=== PATIENT | female | born 1975 ===

== ENCOUNTER 2016-10-15 23:56 | Emergency (ER) | payer OTHER ==
[2016-10-15 23:58] VITALS: BMI 26.4
[2016-10-16 00:04] VITALS: RESP 18; TEMP 98.4; O2SAT 99
[2016-10-16] MEDS ORDERED: Sodium Chloride 0.9% 1,000 ML IV SCH (00:30)
--- NOTE | 2016-10-16 00:33 | ED PDOC ---
Arrival/HPI - General Chief Complaint: Trauma Time Seen by Provider: 10/16/16 00:20 Historian: Patient, EMS - History of Present Illness Narrative History of Present Illness (Text): 10/16/16 00:15 Jocelyne Molina is a 41 year old female, whose past medical history includes seizure on Tegretol, degenerative joint disease, and herniated disks, presents to the emergency department via EMS s/p unwitnessed fall. According to patient' s , patient experienced a mechanical fall down the stairs and transiently loss consciousness. Upon arrival to the emergency department, patient was alert and orientedX3. However she experienced a seizure while waiting in the emergency room prior to evaluation. History and ROS limited due to patient's symptoms. Time/Duration: Prior to Arrival Symptom Onset: Sudden Context: Home Past Medical History - Provider Review Nursing Documentation Reviewed: Yes - Infectious Disease Hx of Infectious Diseases: None - Tetanus Immunization Tetanus Immunization: Unknown - Cardiac Hx Cardiac Disorders: No - Pulmonary Hx Respiratory Disorders: No - Neurological Hx Seizures: Yes - HEENT Hx HEENT Disorder: No - Renal Hx Renal Disorder: No - Endocrine/Metabolic Hx Endocrine Disorders: No - Hematological/Oncological Hx Blood Disorders: No - Integumentary Hx Dermatological Disorder: No - Musculoskeletal/Rheumatological Hx Back Pain: Yes Hx Degenerative Joint Disease: Yes Hx Herniated Disk: Yes Hx Osteoarthritis: Yes Hx Spinal Stenosis: Yes Other/Comment: Scoliosis, - Gastrointestinal Hx Gastrointestinal Disorders: No - Genitourinary/Gynecological Hx Genitourinary Disorders: No - Psychiatric Hx Psychophysiologic Disorder: No Hx Depression: No Hx Emotional Abuse: No Hx Physical Abuse: No Hx Substance Use: No - Surgical History Hx Orthopedic Surgery: Yes (4 back surgery) Hx Tubal Ligation: Yes Other/Comment: Left foot surgery - Anesthesia Hx Anesthesia: Yes Hx Anesthesia Reactions: No Hx Malignant Hyperthermia: No - Suicidal Assessment Feels Threatened In Home Enviroment: No Family/Social History - Physician Review Nursing Documentation Reviewed: Yes Family/Social History: No Known Family HX Smoking Status: Never Smoked Hx Alcohol Use: No Hx Substance Use: No Hx Substance Use Treatment: No Allergies/Home Meds Allergies/Adverse Reactions: Allergies fish oil Allergy (Verified 04/16/15 23:05) ANAPHYLAXIS iodine Allergy (Verified 04/16/15 23:05) ANAPHYLAXIS levetiracetam [From Keppra] Allergy (Verified 04/16/15 23:05) ANAPHYLAXIS naproxen Allergy (Verified 04/16/15 23:05) ANAPHYLAXIS Penicillins Allergy (Verified 04/16/15 23:05) ANAPHYLAXIS phenytoin sodium [From Dilantin] Allergy (Verified 04/16/15 23:05) ANAPHYLAXIS phenytoin sodium extended [From Dilantin] Allergy (Verified 04/16/15 23:05) ANAPHYLAXIS shellfish derived Allergy (Verified 04/16/15 23:05) ANAPHYLAXIS IV Contrast Dye Allergy (Uncoded 04/16/15 23:05) ANAPHYLAXIS Home Medications: Home Meds Medication Instructions Recorded Confirmed Carbamazepine [Tegretol Xr] 200 mg PO Q6H 06/06/14 10/16/16 Cyclobenzaprine HCl [Flexeril] 10 mg PO Q8H PRN 06/06/14 10/16/16 Gabapentin [Gabapentin] 100 mg PO TID 06/06/14 10/16/16 oxyCODONE/Acetaminophen [Percocet 1 tab PO Q4H PRN 06/06/14 10/16/16 5/325 mg Tab] Review of Systems - Review of Systems Systems not reviewed;Unavailable: Acuity of Condition Physical Exam Vital Signs Temp Pulse Resp BP Pulse Ox 10/16/16 00:03 98.4 F 89 18 120/50 L 99 Temperature: Afebrile Blood Pressure: Normal Pulse: Regular Respiratory Rate: Normal Appearance: Positive for: Non-Toxic Mental Status: No: Agitated, Lethargic - Systems Exam Head: Present: Atraumatic, Normocephalic Pupils: Present: PERRL Conjunctiva: Present: Normal Mouth: Present: Moist Mucous Membranes Respiratory/Chest: Present: Clear to Auscultation, Good Air Exchange. No: Respiratory Distress, Accessory Muscle Use Cardiovascular: Present: Regular Rate and Rhythm, Normal S1, S2. No: Murmurs Abdomen: Present: Normal Bowel Sounds. No: Tenderness, Distention, Peritoneal Signs Upper Extremity: Present: Normal Inspection. No: Cyanosis, Edema Lower Extremity: Present: Normal Inspection. No: Edema Skin: Present: Warm, Dry, Normal Color. No: Rashes Medical Decision Making ED Course and Treatment: 10/16/16 00:15 Impression: A 41 year old female who presents to the emergency department for evaluation following mechanical fall. Patient experienced a witnesses seizure while waiting in the emergency room. Plan: -- CT spine -- CT Head -- Carbamazepine -- labs -- Ativan -- IV fluids -- HCG -- Urinalysis -- Reassess and disposition Progress Notes: 10/16/16 00:15 Pt actively seizing in the emergency room. ordered Ativan. 10/16/16 01:16 CT Head reviewed: IMPRESSION: No acute intracranial abnormality 10/16/16 01:47 CT Spine reviewed: IMPRESSION: 1. No acute cervical spine fracture. 2. The cervical lordosis is reversed. There is mild anterolisthesis of C7 on T1. 3. Spondylosis is visualized at multiple cervical levels. 4. Bilateral neural foraminal narrowing is identified at C5-6, with left neural foraminal narrowing at C6-7. 5. Within the C6 vertebral body, there is a heterogeneously hypodense lesion, suggestive of a hemangioma. This can be further evaluated with MRI. 10/16/16 04:02 Patient was offered admission to the hospital for further evaluation, but patient wants to sign out against medical advice. I personally advised the patient to stay in the hospital and informed her of the risks including recurrent seizure and even . States she understands the risks of leaving against medical advice and is adamant in her decision. Leaving Against Medical Advice (AMA): This patient is choosing to leave against medical advice. I have personally explained to the patient that choosing to do so may result in permanent bodily harm or . I have discussed at great length that without further evaluation and monitoring there may be unforeseen circumstances and/or deterioration causing permanent bodily harm or as a result of their choice. The patient is alert, oriented, and shows the mental capacity to make clear decisions regarding the patients health care at this time. The patient continues to wish to leave against medical advice. The patient has been advised that they should return to the ED immediately if they change their mind at any time, or if their condition begins to change or worsen in any way. - Lab Interpretations Lab Results: 10/16/16 00:33 10/16/16 00:33 Lab Results 10/16/16 00:33: WBC 10.4 D, RBC 4.34, Hgb 12.7, Hct 37.2, MCV 85.7, MCH 29.3, MCHC 34.1, RDW 13.4, Plt Count 309, MPV 9.0 10/16/16 00:33: Sodium 138, Potassium 3.3 L, Chloride 104, Carbon Dioxide 21, Anion Gap 16, BUN 13, Creatinine 0.6, Est GFR ( Amer) > 60, Est GFR (Non- Af Amer) > 60, Random Glucose 129 H, Calcium 9.2, Total Bilirubin 0.3, AST 28, ALT 18, Alkaline Phosphatase 45, Total Protein 7.0, Albumin 4.3, Globulin 2.6, Albumin/Globulin Ratio 1.7 I have reviewed the lab results: Yes - RAD Interpretation Narrative RAD Interpretations (Text): EXAM: CT Head Without Intravenous Contrast Dictated and Authenticated by: Zen Mckinnon MD FINDINGS: Brain: The white-geller differentiation is preserved demonstrating no acute territorial type infarct. No acute intracranial hemorrhage is seen. No edema. Midline shift: There is no midline shift. Ventricles: No ventriculomegaly. Bones/joints: The calvarium demonstrates no evidence for a depressed fracture. There is a stable nonspecific sclerotic lesion within the left posterior superior parietal skull. Soft tissues: No acute abnormality. Sinuses: Mild mucosal thickening is visualized of a left anterior ethmoid air cell. Mastoid air cells: No mastoid effusion. IMPRESSION: 1. No acute intracranial abnormality. 2. Incidental/non-acute findings are described above. 10/16/16 01:43 EXAM: CT Cervical Spine Without Intravenous Contrast Dictated and Authenticated by: Zen Mckinnon MD FINDINGS: Vertebrae: No acute cervical spine fracture. The cervical lordosis is reversed. There is mild anterolisthesis of C7 on T1. The facet alignment is preserved bilaterally. The occipital condyles and C1-C2 articulations appear intact. Hypertrophic degenerative changes are identified at the junction of the anterior C1 arch and dens process, with an adjacent ossicle. Within the C6 vertebral body, there is a heterogeneously hypodense lesion, suggestive of a hemangioma. Discs/spinal canal/neural foramina: Spondylosis is visualized at multiple cervical levels. Bilateral neural foraminal narrowing is identified at C5-6, with left neural foraminal narrowing at C6-7. There is a decrease in disc height at C5-6 and C6-7. Soft tissues: The prevertebral soft tissues appear within normal limits. Lung apices: No pneumothorax. There is biapical parenchymal scarring. IMPRESSION: 1. No acute cervical spine fracture. 2. The cervical lordosis is reversed. There is mild anterolisthesis of C7 on T1. 3. Spondylosis is visualized at multiple cervical levels. 4. Bilateral neural foraminal narrowing is identified at C5-6, with left neural foraminal narrowing at C6-7. 5. Within the C6 vertebral body, there is a heterogeneously hypodense lesion, suggestive of a hemangioma. This can be further evaluated with MRI. Radiology Orders: 10/16/16 00:21 HEAD W/O CONTRAST [CT] Stat 10/16/16 00:31 CERVICAL SPINE W/O CONTRAST [CT] Stat Record Press Supervisor: Radiologist - Medication Orders Current Medication Orders: Sodium Chloride (Sodium Chloride 0.9%) 1,000 mls @ 100 mls/hr IV .Q10H JOSE GUADALUPE Last Admin: 10/16/16 00:32 Dose: 100 mls/hr Discontinued Medications Lorazepam (Ativan) Confirm Administered Dose 2 mg .ROUTE .STK-MED ONE Stop: 10/16/16 00:19 Last Admin: 10/16/16 00:32 Dose: Lorazepam (Ativan) 2 mg IVP ONCE ONE Stop: 10/16/16 00:21 Last Admin: 10/16/16 00:32 Dose: 2 mg Potassium Chloride (K-Dur 20 Meq Er Tab) 20 meq PO STAT STA Stop: 10/16/16 03:08 Last Admin: 10/16/16 03:37 Dose: 20 meq - Scribe Statement Marjorie Sal Provider Attestation: All medical record entries made by the [place]ton were at my direction and personally dictated by me. I have reviewed the chart and agree that the record accurately reflects my personal performance of the history, physical exam, medical decision making, and the department course for this patient. I have also personally directed, reviewed, and agree with the discharge instructions and disposition. Disposition/Present on Arrival - Present on Arrival Any Indicators Present on Arrival: No History of DVT/PE: No History of Uncontrolled Diabetes: No Urinary Catheter: No History of Decub. Ulcer: No History Surgical Site Infection Following: None - Disposition Have Diagnosis and Disposition been Completed?: Yes Diagnosis: Seizure disorder, Fall Disposition: AGAINST MEDICAL ADVICE Disposition Time: 04:09 Condition: STABLE Referrals: Sydni Gray DO [Primary Care Provider] - Follow up with primary Forms: [email or web address] ([place])
[2016-10-16 00:56] LABS: HEMOGLOBIN 12.7 g/dL (12.0-16.0); MEAN CELL VOLUME 85.7 fl (80.0-105.0); MEAN CORPUSCULAR HEMOGLOBIN 29.3 pg (25.0-35.0); MEAN CORPUSCULAR HGB CONC 34.1 g/dl (31.0-37.0); RBC 4.34 10^6/uL (3.5-6.1); RED CELL DISTRIBUTION WIDTH 13.4 % (11.5-14.5); WHITE BLOOD COUNT 10.4 10^3/ul (4.5-11.0)
[2016-10-16 01:02] LABS: ALB/GLOB RATIO 1.7 (1.1-1.8); ALBUMIN 4.3 g/dL (3.0-4.8); ALT/SGPT 18 U/L (7-56); AST/SGOT 28 U/L (15-39); BLOOD UREA NITROGEN 13 mg/dL (7-21); CALCIUM 9.2 mg/dL (8.4-10.5); GFR AFRICAN-AMERICAN > 60; GFR NON-AFRICAN AMERICAN > 60
[2016-10-16] MEDS ORDERED: Potassium Chloride 20 mEq ER Tab PO STA (03:07)
[2016-10-16 04:18] LABS: URINE BILIRUBIN NEGATIVE (NEGATIVE); URINE BLOOD TRACE-LYSED (NEGATIVE); URINE GLUCOSE (UA) NEGATIVE (NEGATIVE); URINE LEUKOCYTE ESTERASE TRACE Leu/uL (NEGATIVE); URINE NITRATE NEGATIVE (NEGATIVE); URINE PROTEIN NEGATIVE mg/dL (<30 mg/dL); URINE UROBILINOGEN 0.2 E.U./dL (<1 E.U./dL)
[2016-10-16 04:24] LABS: URINE APPEARANCE CLEAR (CLEAR); URINE COLOR YELLOW (YELLOW)
[2016-10-16 04:26] LABS: HCG,QUALITATIVE URINE NEGATIVE (NEGATIVE)
[2016-10-16 04:35] VITALS: BP 118/70; PULSE 86
[2016-10-16 04:56] LABS: URINE RBC 0 - 2 /hpf (0-2)
[2016-10-16 04:57] LABS: URINE WBC 0 - 2 /hpf (0-6)
--- NOTE | 2016-10-16 07:21 | CT ---
PROCEDURE: CT HEAD WITHOUT CONTRAST. HISTORY: fall/seizure COMPARISON: None available. TECHNIQUE: Axial computed tomography images were obtained through the head/brain without intravenous contrast. Radiation dose: Total exam DLP = 690 mGy-cm. This CT exam was performed using one or more of the following dose reduction techniques: Automated exposure control, adjustment of the mA and/or kV according to patient size, and/or use of iterative reconstruction technique. FINDINGS: HEMORRHAGE: No intracranial hemorrhage. BRAIN: No mass effect or edema. No atrophy or chronic microvascular ischemic changes. VENTRICLES: Unremarkable. No hydrocephalus. CALVARIUM: Unremarkable. PARANASAL SINUSES: Unremarkable as visualized. No significant inflammatory changes. MASTOID AIR CELLS: Unremarkable as visualized. No inflammatory changes. OTHER FINDINGS: None. IMPRESSION: Normal CT of the Head.
--- NOTE | 2016-10-16 11:47 | CARD ---
APPROVED REPORT EKG Measurement Heart [id number] <Conclusion> Normal sinus rhythm with sinus arrhythmia Normal ECG
--- NOTE | 2016-10-16 12:49 | CT ---
PROCEDURE: CT Cervical Spine without contrast HISTORY: Fall down stairs COMPARISON: None available. TECHNIQUE: Axial computed tomography images were obtained of the cervical spine without the use of intravenous contrast. Coronal and sagittal reformatted images were created and reviewed. Radiation dose: Total exam DLP = 411 mGy-cm. This CT exam was performed using one or more of the following dose reduction techniques: Automated exposure control, adjustment of the mA and/or kV according to patient size, and/or use of iterative reconstruction technique. FINDINGS: VERTEBRAE: No fracture. Normal alignment. No destructive bony lesion. DISCS/SPINAL CANAL/NEURAL FORAMINA: Mild disc degeneration with foraminal narrowing at C5-6 and C6-7 probable hemangioma at C6 PARASPINAL SOFT TISSUES: Unremarkable. OTHER FINDINGS: The report concurs with the preliminary [facility] report IMPRESSION: No acute findings
== END 2016-10-16 04:35 | disposition left against medical advice (07) ==
LOC: ED 23:56
DX: Z04.8 Encounter for examination and observation for other specified reasons (principal); W10.8XXA Fall (on) (from) other stairs and steps, initial encounter; Y93.89 Activity, other specified; Y92.89 Other specified places as the place of occurrence of the external cause; G40.909 Epilepsy, unspecified, not intractable, without status epilepticus
CPT/HCPCS: 70450; 72125; 80053; 80156; 81001; 84703; 85027; 87086; 93005; 96374; 99285; J2060; J7040

== ENCOUNTER 2017-05-23 12:43 | Emergency (ER) | payer OTHER ==
[2017-05-23 12:43] VITALS: BMI 26.4
[2017-05-23 13:07] VITALS: TEMP 98.3
[2017-05-23] MEDS ORDERED: Magnesium Sulfate 1 gm in D5W 1 GM/100 ML BAG IVPB ONE (13:26)
[2017-05-23] MEDS ORDERED: HYDROmorphone 1 mg/ml ISec IVP STA (13:27)
--- NOTE | 2017-05-23 13:28 | ED PDOC ---
Arrival/HPI - General Chief Complaint: Headache Time Seen by Provider: 05/23/17 13:10 Historian: Patient, Spouse - History of Present Illness Narrative History of Present Illness (Text): 05/23/17 13:28 pt p/w + few days onset of worsening neck pain and now with worsening occipital headache; pt states at most pain is now 8-9/10; pt states she usually have neck pain, baseline pain ~ 5/10; pt states over the last ~ +2 week, neck pain became severe; pt states she has had these headache now for ~ 16 days; pt states mild light sensitive; + nausea, 1-2 episodes of vomiting, no fever/chills/sweats, no cp/sob/palpitations, no abd pain, no new numbness/tingling, no urinary/bowel changes, no fall/trauma/sick contact, no travel; pt denied other complaints pt states no focal arm/leg weakness pt states few days ago was noted to have slurr once/twice of her words pt is here for further eval pt's without other complaints. hx of severe cervical DJD with herniation (no surgery) pt has had lumbar epidurals in the past PCP: DR GRAY pt lives with spouse pt is right hand dominate pt with left facial/arm/leg/body numbness/tingling (chronic) pt had seen multiple pain specialists/neurologists/neurosurg, without any improvements Time/Duration: > week (~ 16 days of headaches; chronic neck pain) Symptom Onset: Gradual Symptom Course: Worsening Quality: Tightness, Throbbing Severity Level: 9, Severe Activities at Onset: Other (worse with movement) Context: Exertion, Home Past Medical History - Provider Review Nursing Documentation Reviewed: Yes - Travel History Have you recently traveled outside [place] w/in the past 3 mons?: No - Past History Past History: No Previous - Infectious Disease Hx of Infectious Diseases: None - Tetanus Immunization Tetanus Immunization: Unknown - Reproductive Menopause: No Currently : No - Cardiac Hx Cardiac Disorders: No - Pulmonary Hx Respiratory Disorders: No - Neurological Hx Neurological Disorder: Yes Hx Seizures: Yes - HEENT Hx HEENT Disorder: No - Renal Hx Renal Disorder: No - Endocrine/Metabolic Hx Endocrine Disorders: No - Hematological/Oncological Hx Blood Disorders: No - Integumentary Hx Dermatological Disorder: No - Musculoskeletal/Rheumatological Hx Musculoskeletal Disorders: Yes Hx Back Pain: Yes Hx Degenerative Joint Disease: Yes Hx Herniated Disk: Yes Hx Osteoarthritis: Yes Hx Spinal Stenosis: Yes Other/Comment: Scoliosis, - Gastrointestinal Hx Gastrointestinal Disorders: No - Genitourinary/Gynecological Hx Genitourinary Disorders: No - Psychiatric Hx Psychophysiologic Disorder: No Hx Depression: No Hx Emotional Abuse: No Hx Physical Abuse: No Hx Substance Use: No - Surgical History Hx Orthopedic Surgery: Yes (4 back surgery) Hx Tubal Ligation: Yes Other/Comment: Left foot surgery - Anesthesia Hx Anesthesia: Yes Hx Anesthesia Reactions: No Hx Malignant Hyperthermia: No - Suicidal Assessment Feels Threatened In Home Enviroment: No Family/Social History - Physician Review Nursing Documentation Reviewed: Yes Family/Social History: No Known Family HX Smoking Status: Never Smoked Hx Alcohol Use: No Hx Substance Use: No Hx Substance Use Treatment: No Allergies/Home Meds Allergies/Adverse Reactions: Allergies fish oil Allergy (Verified 05/23/17 12:44) ANAPHYLAXIS iodine Allergy (Verified 05/23/17 12:44) ANAPHYLAXIS levetiracetam [From Keppra] Allergy (Verified 05/23/17 12:44) ANAPHYLAXIS naproxen Allergy (Verified 05/23/17 12:44) ANAPHYLAXIS Penicillins Allergy (Verified 05/23/17 12:44) ANAPHYLAXIS phenytoin sodium [From Dilantin] Allergy (Verified 05/23/17 12:44) ANAPHYLAXIS phenytoin sodium extended [From Dilantin] Allergy (Verified 05/23/17 12:44) ANAPHYLAXIS shellfish derived Allergy (Verified 05/23/17 12:44) ANAPHYLAXIS IV Contrast Dye Allergy (Uncoded 05/23/17 12:44) ANAPHYLAXIS Home Medications: Home Meds Medication Instructions Recorded Confirmed Carbamazepine [Tegretol Xr] 200 mg PO Q6H 06/06/14 05/23/17 Cyclobenzaprine HCl [Flexeril] 10 mg PO Q8H PRN 06/06/14 05/23/17 oxyCODONE/Acetaminophen [Percocet 1 tab PO Q4H PRN 06/06/14 05/23/17 5/325 mg Tab] DULoxetine [Cymbalta] 20 mg PO DAILY 05/23/17 05/23/17 Review of Systems - Review of Systems Constitutional: Normal Eyes: Normal ENT: Normal Respiratory: Normal Cardiovascular: Normal Gastrointestinal: Nausea, Vomiting. absent: Abdominal Pain Genitourinary Female: Normal Musculoskeletal: Back Pain, Neck Pain Skin: Normal Neurological: Headache, Dizziness Endocrine: Normal Hemo/Lymphatic: Normal Psychiatric: Normal Physical Exam Vital Signs Reviewed: Yes Vital Signs Temp Pulse Resp BP Pulse Ox 05/23/17 16:00 86 17 130/78 100 05/23/17 14:03 90 18 127/80 100 05/23/17 13:06 98.3 F 95 H 16 126/78 99 05/23/17 12:46 97.8 F 88 16 126/85 98 Temperature: Afebrile Blood Pressure: Normal Pulse: Regular Respiratory Rate: Normal Appearance: Positive for: Well-Appearing, Non-Toxic, Uncomfortable, Other (alert /awake, GCS = 15, oriented x 3, moderate distress due to pain, uncomfortable, cooperative, sitting in bed) Pain Distress: Moderate Mental Status: Positive for: Alert and Oriented X 3 - Systems Exam Head: Present: Atraumatic, Normocephalic Pupils: Present: PERRL, Other (mild light sensitive; no nystagmus, sclera anicteric) Extroacular Muscles: Present: EOMI Conjunctiva: Present: Normal Ears: Present: Normal, NORMAL TM, Normal Canal. No: TM Bulging Mouth: Present: Moist Mucous Membranes, Normal Teeth Pharnyx: Present: Normal Nose (External): Present: Atraumatic Nose (Internal): Present: Normal Inspection Neck: Present: Normal Range of Motion, Trachea Midline, Other (decr ROM; no step off, no nuchal rigidity, no meningeal signs; + lower cervical/paracervical (left sided) tenderness on exam, no gross deformities). No: MIDLINE TENDERNESS Respiratory/Chest: Present: Clear to Auscultation, Good Air Exchange, Other ( CTA b/l, no w/r/r). No: Respiratory Distress, Accessory Muscle Use Cardiovascular: Present: Regular Rate and Rhythm, Normal S1, S2. No: Murmurs Abdomen: Present: Normal Bowel Sounds, Other (well nourished female, no focal tenderness, no masses/rebound/guarding/rigidity, no sarkar's sign, no mcburney' s point tenderness). No: Tenderness Back: Present: Normal Inspection. No: CVA Tenderness, Midline Tenderness Upper Extremity: Present: Normal Inspection, NORMAL PULSES, Neurovascularly Intact, Capillary Refill < 2s, Other (decr ROM to left arm (chronic), strength 5 /5 grossly intact in all limbs) Lower Extremity: Present: Normal Inspection, NORMAL PULSES, Normal ROM, Neurovascularly Intact, Capillary Refill < 2 s, Other (+ ambulatory, neurovasc intact b/l, strength 5/5 grossly intact in all limbs) Neurological: Present: GCS=15, CN II-XII Intact, Speech Normal Skin: Present: Warm, Dry, Normal Color, Other (cap refill < 1sec, no ulcerations , no petechiae). No: Rashes Psychiatric: Present: Alert, Oriented x 3 Medical Decision Making ED Course and Treatment: 05/23/17 13:30 Impression: headache, new; recurrent neck pain i have consider all the differential diagnosis regarding pt's chief medical complaints/clinical findings, including but are not limited to: headache, new; recurrent neck pain A/P: headache, new; recurrent neck pain - labs - iv - CT - observe - supportive care 05/23/17 1600 pt felt improved pt states headaches are gone, with residual neck pain at ~ 3/10 1715 pt with unchanged discomfort; no more headache with light neck pain at 3/10 pt is doing well pt is comfortable pt is made aware of her medical results pt will f/u as directed pt will be discharged home Re-evaluation Time: 17:15 Reassessment Condition: Improved - Lab Interpretations Lab Results: 05/23/17 13:30 05/23/17 13:30 Lab Results 05/23/17 13:30: Urine Color Yellow, Urine Appearance Turbid, Urine pH 6.0, Ur Specific Lenora 1.015, Urine Protein Trace H, Urine Glucose (UA) Negative, Urine Ketones Negative, Urine Blood Large H, Urine Nitrate Negative, Urine Bilirubin Negative, Urine Urobilinogen 0.2, Ur Leukocyte Esterase Small H, Urine RBC Tntc, Urine WBC 0 - 2, Ur Epithelial Cells 3 - 4 05/23/17 13:30: C-React Prot High Sens 6.17 H 05/23/17 13:30: Sodium 140, Potassium 4.1, Chloride 107, Carbon Dioxide 25, Anion Gap 13, BUN 15, Creatinine 0.6 L, Est GFR ( Amer) > 60, Est GFR ( Non-Af Amer) > 60, Random Glucose 89, Calcium 9.0, Total Bilirubin 0.2, AST 19, ALT 27, Alkaline Phosphatase 39, Total Protein 6.6, Albumin 3.7, Globulin 2.9, Albumin/Globulin Ratio 1.3 05/23/17 13:30: WBC 7.9 D, RBC 4.48, Hgb 13.3, Hct 38.9, MCV 86.8, MCH 29.7, MCHC 34.2, RDW 13.5, Plt Count 273, MPV 8.8, Gran % 65.3, Lymph % (Auto) 21.2 L , [place] % (Auto) 7.3 H, Eos % (Auto) 5.8 H, Baso % (Auto) 0.4, Gran # 5.16, Lymph # (Auto) 1.7, [place] # (Auto) 0.6, Eos # (Auto) 0.5, Baso # (Auto) 0.03, ESR 4 I have reviewed the lab results: Yes Interpretation: All labs normal - RAD Interpretation Narrative RAD Interpretations (Text): Report Date : 05/23/2017 14:36:39 PROCEDURE: CT HEAD WITHOUT CONTRAST. Dictator : Jose Purcell MD IMPRESSION: Normal CT of the Head. 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 and C6-7 Radiology Orders: 05/23/17 13:24 HEAD W/O CONTRAST [CT] Stat 05/23/17 13:25 CERVICAL SPINE W/O CONTRAST [CT] Stat Show Girl: Radiologist - Medication Orders Current Medication Orders: Discontinued Medications Carbamazepine (Tegretol) 200 mg PO STAT STA PRN Reason: Protocol Stop: 05/23/17 13:27 Last Admin: 05/23/17 13:49 Dose: 200 mg Diazepam (Valium) 5 mg PO ONCE ONE PRN Reason: Protocol Stop: 05/23/17 13:27 Last Admin: 05/23/17 13:49 Dose: 5 mg Magnesium Sulfate/Dextrose (Magnesium Sulfate 1 Gm/100 Ml D5w) 1 gm in 100 mls @ 100 mls/hr IVPB ONCE ONE Stop: 05/23/17 14:25 Last Admin: 05/23/17 13:50 Dose: 100 mls/hr eMAR Start Stop Document 05/23/17 13:50 SF (Rec: 05/23/17 13:50 SF [email or web address]) Intravenous Solution Start Date 05/23/17 Start Time 13:50 End Date 05/23/17 End time 14:50 Total Infusion Time 60 Ketorolac Tromethamine (Toradol) 15 mg IVP STAT STA Stop: 05/23/17 13:27 Last Admin: 05/23/17 13:47 Dose: 15 mg MAR Pain Assessment Document 05/23/17 13:47 SF (Rec: 05/23/17 13:47 [email or web address]) Pain Reassessment Is this a pain reassessment? Yes Sleep Is patient sleeping during reassessment? No Presence of Pain Presence of Pain Yes IVP Administration Document 05/23/17 13:47 SF (Rec: 05/23/17 13:47 [email or web address]) Charges for Administration # of IVP Administrations 1 Metoclopramide HCl (Reglan) 10 mg IVP STAT STA Stop: 05/23/17 13:27 Last Admin: 05/23/17 13:45 Dose: 10 mg IVP Administration Document 05/23/17 13:45 SF (Rec: 05/23/17 13:45 [email or web address]) Charges for Administration # of IVP Administrations 1 Morphine Sulfate (Morphine) 2 mg IVP STAT STA Stop: 05/23/17 13:48 Last Admin: 05/23/17 14:04 Dose: 2 mg MAR Pain Assessment Document 05/23/17 14:04 SF (Rec: 05/23/17 14:04 [email or web address]) Pain Reassessment Is this a pain reassessment? Yes Sleep Is patient sleeping during reassessment? No Presence of Pain Presence of Pain Yes Pain Scale Used Pain Scale Used Numeric IVP Administration Document 05/23/17 14:04 SF (Rec: 05/23/17 14:04 [email or web address]) Charges for Administration # of IVP Administrations 1 Morphine Sulfate (Morphine) 2 mg IVP STAT STA Stop: 05/23/17 17:02 Last Admin: 05/23/17 17:23 Dose: 2 mg MAR Pain Assessment Document 05/23/17 17:23 SF (Rec: 05/23/17 17:25 [email or web address]) Pain Reassessment Is this a pain reassessment? Yes Sleep Is patient sleeping during reassessment? 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 Ulcer: No History Surgical Site Infection Following: None - Disposition Have Diagnosis and Disposition been Completed?: Yes Diagnosis: Headache, Cervical back pain with evidence of disc disease Disposition: HOME/ ROUTINE Disposition Time: 17:17 Patient Plan: Discharge Condition: STABLE Discharge Instructions (ExitCare): Headache, Adult, Radiculopathy, Headache, Adult (DC), Chronic Neck Pain (DC) Print Language: JAPANESE Additional Instructions: Make sure to see your doctor in 1-2 days DRINK PLENTY OF FLUIDS take your medications as prescribed AVOID heavy lifting RETURN TO ED IF worse pain, cant breath, persistent vomiting, high fever >101- 102 for hours, altered behavior, unable to urinate, severe numbness/tingling, focal arm/leg weakness, slurr speech, vision changes, heavy/persistent bleeding , passing out, chest pain, or other medical emergencies Prescriptions: Diazepam [Valium] 2 mg PO QID PRN #15 tablet PRN Reason: Muscle Spasm Referrals: Sydni Gray DO [Primary Care Provider] - Follow up with primary Alvin Tian MD [Staff Provider] - Follow up with primary Romeo Evangelista MD [Staff Provider] - Follow up with primary Forms: [employer] (Citizen Of [place])
[2017-05-23] MEDS ORDERED: Morphine 2 mg/ml ISec IVP STA ×2 (13:47→17:01)
[2017-05-23 13:48] LABS: BASO # 0.03 K/mm3 (0.0-2.0); BASO % 0.4 % (0.0-3.0); EOS # 0.5 (0.0-0.7); EOS % 5.8 % (1.5-5.0); GRAN # 5.16 (1.4-6.5); GRAN % 65.3 % (50.0-68.0); HEMOGLOBIN 13.3 g/dL (12.0-16.0); LYMPH # 1.7 (1.2-3.4); LYMPH % 21.2 % (22.0-35.0); MEAN CELL VOLUME 86.8 fl (80.0-105.0); MEAN CORPUSCULAR HEMOGLOBIN 29.7 pg (25.0-35.0); MEAN CORPUSCULAR HGB CONC 34.2 g/dl (31.0-37.0); MEAN PLATELET VOLUME 8.8 fl (7.0-11.0); MONO # 0.6 (0.1-0.6); MONO % 7.3 % (1.0-6.0); RBC 4.48 10^6/uL (3.5-6.1); RED CELL DISTRIBUTION WIDTH 13.5 % (11.5-14.5); URINE BILIRUBIN NEGATIVE (NEGATIVE); URINE BLOOD LARGE (NEGATIVE); URINE GLUCOSE (UA) NEGATIVE (NEGATIVE); URINE LEUKOCYTE ESTERASE SMALL Leu/uL (NEGATIVE); URINE PROTEIN TRACE mg/dL (<30 mg/dL); URINE UROBILINOGEN 0.2 E.U./dL (<1 E.U./dL); WHITE BLOOD COUNT 7.9 10^3/ul (4.5-11.0)
[2017-05-23 13:52] LABS: URINE APPEARANCE TURBID (CLEAR); URINE COLOR YELLOW (YELLOW)
[2017-05-23 13:54] LABS: URINE RBC TNTC /hpf (0-2); URINE WBC 0 - 2 /hpf (0-6)
[2017-05-23 14:02] LABS: ALB/GLOB RATIO 1.3 (1.1-1.8); ALBUMIN 3.7 g/dL (3.0-4.8); ALT/SGPT 27 U/L (7-56); AST/SGOT 19 U/L (14-36); BLOOD UREA NITROGEN 15 mg/dL (7-21); GFR AFRICAN-AMERICAN > 60; GFR NON-AFRICAN AMERICAN > 60
[2017-05-23 14:04] VITALS: O2SAT 100
--- NOTE | 2017-05-23 14:38 | CT ---
PROCEDURE: CT HEAD WITHOUT CONTRAST. HISTORY: occipital mendez x 16 days, no trauma COMPARISON: 10/16/2016 TECHNIQUE: Axial computed tomography images were obtained through the head/brain without intravenous contrast. Radiation dose: Total exam DLP = 776 mGy-cm. This CT exam was performed using one or more of the following dose reduction techniques: Automated exposure control, adjustment of the mA and/or kV according to patient size, and/or use of iterative reconstruction technique. FINDINGS: HEMORRHAGE: No intracranial hemorrhage. BRAIN: No mass effect or edema. No atrophy or chronic microvascular ischemic changes. VENTRICLES: Unremarkable. No hydrocephalus. CALVARIUM: Unremarkable. PARANASAL SINUSES: Unremarkable as visualized. No significant inflammatory changes. MASTOID AIR CELLS: Unremarkable as visualized. No inflammatory changes. OTHER FINDINGS: None. IMPRESSION: Normal CT of the Head.
--- NOTE | 2017-05-23 14:42 | CT ---
PROCEDURE: CT Cervical Spine without contrast HISTORY: History of severe DJD COMPARISON: CT 10/16/2016 TECHNIQUE: Axial computed tomography images were obtained of the cervical spine without the use of intravenous contrast. Coronal and sagittal reformatted images were created and reviewed. Radiation dose: Total exam DLP = 429 mGy-cm. This CT exam was performed using one or more of the following dose reduction techniques: Automated exposure control, adjustment of the mA and/or kV according to patient size, and/or use of iterative reconstruction technique. FINDINGS: VERTEBRAE: No fracture. Normal alignment. No destructive bony lesion. DISCS/SPINAL CANAL/NEURAL FORAMINA: Disc degeneration with bilateral foraminal stenosis at C5-6 and C6-7 Discs heights are grossly preserved. PARASPINAL SOFT TISSUES: Unremarkable. OTHER FINDINGS: None. IMPRESSION: Disc degeneration with bilateral foraminal stenosis at C5-6 and C6-7
[2017-05-23 16:47] VITALS: BP 130/78; PULSE 86; RESP 17
== END 2017-05-23 17:28 | disposition home or self-care (01) ==
LOC: ED 12:43
DX: M50.323 Other cervical disc degeneration at C6-C7 level (principal); R51 Headache
CPT/HCPCS: 70450; 72125; 80053; 81001; 85025; 85651; 86140; 87086; 87181; 96365; 96375; 96376; 99285; J1885; J2270; J2765; J3475

== ENCOUNTER 2017-06-22 14:08 | Emergency (ER) | payer OTHER ==
[2017-06-22 14:43] VITALS: BMI 26.5
[2017-06-22] MEDS ORDERED: Sodium Chloride 0.9% 1,000 ML IV STA (14:51)
[2017-06-22] MEDS ORDERED: Oxycodone/Acetaminophen 5/325 mg Tab PO STA ×2 (14:52→17:14)
--- NOTE | 2017-06-22 15:00 | ED PDOC ---
Arrival/HPI - General Chief Complaint: Abdominal Pain Time Seen by Provider: 06/22/17 14:41 Historian: Patient - History of Present Illness Narrative History of Present Illness (Text): 06/22/17 14:55 42 year old female, with no significant past medical history, allergic to penicillin/levetiractam/iodine/naproxen only but not other nsaids, who presents to the emergency department complaining of suprapubic/lower back pain for the past 7-10 days. Pt notes she was here about 1-2 weeks ago and was diagnosed with a UTI and completed the course of 5-7 days 500mg bid ciprofloxacin with her own pmd. Pt. stated that her pain has not resolved yet which she will like to be re-evaluated. Patient denies any fever, chills, chest pain, shortness of breath, nausea, vomiting, diarrhea, vaginal bleeding/discharge, abdominal pain, hematuria, flank pain, back pain, neck pain, headache, dizziness, or any other complaints. Time/Duration: 1 week Symptom Onset: Gradual Symptom Course: Unchanged Activities at Onset: Light Context: Home Past Medical History - Provider Review Nursing Documentation Reviewed: Yes - Past History Past History: No Previous - Infectious Disease Hx of Infectious Diseases: None - Tetanus Immunization Tetanus Immunization: Unknown - Cardiac Hx Cardiac Disorders: No - Pulmonary Hx Respiratory Disorders: No - Neurological Hx Neurological Disorder: Yes Hx Seizures: Yes - HEENT Hx HEENT Disorder: No - Renal Hx Renal Disorder: No - Endocrine/Metabolic Hx Endocrine Disorders: No - Hematological/Oncological Hx Blood Disorders: No - Integumentary Hx Dermatological Disorder: No - Musculoskeletal/Rheumatological Hx Musculoskeletal Disorders: Yes Hx Back Pain: Yes Hx Degenerative Joint Disease: Yes Hx Herniated Disk: Yes Hx Osteoarthritis: Yes Hx Spinal Stenosis: Yes Other/Comment: Scoliosis, - Gastrointestinal Hx Gastrointestinal Disorders: No - Genitourinary/Gynecological Hx Genitourinary Disorders: No - Psychiatric Hx Psychophysiologic Disorder: No Hx Depression: No Hx Emotional Abuse: No Hx Physical Abuse: No Hx Substance Use: No - Surgical History Hx Orthopedic Surgery: Yes (4 back surgery) Hx Tubal Ligation: Yes Other/Comment: Left foot surgery - Anesthesia Hx Anesthesia: Yes Hx Anesthesia Reactions: No Hx Malignant Hyperthermia: No - Suicidal Assessment Feels Threatened In Home Enviroment: No Family/Social History - Physician Review Nursing Documentation Reviewed: Yes Family/Social History: Unknown Family HX Smoking Status: Never Smoked Hx Alcohol Use: No Hx Substance Use: No Hx Substance Use Treatment: No Allergies/Home Meds Allergies/Adverse Reactions: Allergies fish oil Allergy (Verified 05/23/17 12:44) ANAPHYLAXIS iodine Allergy (Verified 05/23/17 12:44) ANAPHYLAXIS levetiracetam [From Keppra] Allergy (Verified 05/23/17 12:44) ANAPHYLAXIS naproxen Allergy (Verified 05/23/17 12:44) ANAPHYLAXIS Penicillins Allergy (Verified 05/23/17 12:44) ANAPHYLAXIS phenytoin sodium [From Dilantin] Allergy (Verified 05/23/17 12:44) ANAPHYLAXIS phenytoin sodium extended [From Dilantin] Allergy (Verified 05/23/17 12:44) ANAPHYLAXIS shellfish derived Allergy (Verified 05/23/17 12:44) ANAPHYLAXIS IV Contrast Dye Allergy (Uncoded 05/23/17 12:44) ANAPHYLAXIS Home Medications: Home Meds Medication Instructions Recorded Confirmed Carbamazepine [Tegretol Xr] 200 mg PO Q6H 06/06/14 06/22/17 Cyclobenzaprine HCl [Flexeril] 10 mg PO Q8H PRN 06/06/14 06/22/17 oxyCODONE/Acetaminophen [Percocet 1 tab PO Q4H PRN 06/06/14 06/22/17 5/325 mg Tab] DULoxetine [Cymbalta] 20 mg PO DAILY 05/23/17 06/22/17 Ciprofloxacin HCl [Cipro] 500 mg PO BID 06/22/17 06/22/17 Review of Systems - Review of Systems Constitutional: Normal. absent: Fevers Eyes: Normal ENT: Normal Respiratory: Normal. absent: SOB, Cough Cardiovascular: Normal. absent: Chest Pain Gastrointestinal: Abdominal Pain (suprapubic pain). absent: Diarrhea, Nausea, Vomiting Genitourinary Female: Normal. absent: Dysuria, Frequency, Hematuria Musculoskeletal: Normal. absent: Arthralgias, Back Pain, Neck Pain Skin: Normal. absent: Rash Neurological: Normal. absent: Headache, Dizziness Endocrine: Normal Hemo/Lymphatic: Normal Psychiatric: Normal Physical Exam Vital Signs Reviewed: Yes Vital Signs Temp Pulse Resp BP Pulse Ox 06/22/17 18:20 98.9 F 88 18 125/45 L 98 06/22/17 14:08 99.1 F 97 H 16 101/67 97 Temperature: Afebrile Blood Pressure: Normal Pulse: Regular Respiratory Rate: Normal Appearance: Positive for: Well-Appearing, Non-Toxic, Comfortable Pain Distress: Moderate Mental Status: Positive for: Alert and Oriented X 3 - Systems Exam Head: Present: Atraumatic, Normocephalic Pupils: Present: PERRL Extroacular Muscles: Present: EOMI Conjunctiva: Present: Normal Mouth: Present: Moist Mucous Membranes Neck: Present: Normal Range of Motion Respiratory/Chest: Present: Clear to Auscultation, Good Air Exchange. No: Respiratory Distress, Accessory Muscle Use Cardiovascular: Present: Regular Rate and Rhythm, Normal S1, S2. No: Murmurs Abdomen: Present: Tenderness (mild suprapbic tenderness). No: Distention, Peritoneal Signs Genitourinary/Pelvic Exam: Present: Other (Pt. declined. ) Back: Present: Normal Inspection. No: CVA Tenderness, Midline Tenderness, Pain with Leg Raise Upper Extremity: Present: Normal Inspection. No: Cyanosis, Edema Lower Extremity: Present: Normal Inspection. No: Edema Neurological: Present: GCS=15, Speech Normal, Motor Func Grossly Intact, Gait Normal, Memory Normal Skin: Present: Warm, Dry, Normal Color. No: Rashes Psychiatric: Present: Alert, Oriented x 3, Normal Insight, Normal Concentration Medical Decision Making ED Course and Treatment: 06/22/17 15:01 Impression: 42 year old female who presents to the emergency department complaining of superpubic pain for 10 days. Plan: -- Transvaginal/pelvic US -- Urinalysis -- Labs -- POC Urine Test -- IV Fluids -- Percocet -- Reassess and disposition Progress Notes: 06/22/17 18:09 -Urine hcg is negative -I reviewed the urine culture, ciprofloxacin is sensitive and the macrobid as well. -Sonogram show Thickened endometrium, recommend followup in 4-6 weeks. Heterogeneous myometrium without discrete lesion, possible adenomyosis. -CT abdomen and pelvis show No evidence of nephrolithiasis or hydronephrosis. No evidence of cholelithiasis or acute appendicitis. The urinary bladder incompletely distended which in part accounts for thick-walled appearance. Possibility of a cystitis not excluded. Small fat containing umbilical hernia. -Labs show no acute findings. -UA show +UTI, IV meropenem ordered -Pt. stated that her period is due soon, eating and drinking well, no pain , has percocet at home and also takes motrin as well, no adverse reaction or side effect received from the IV toradol in the ER. -Pt. feels asymptomatic, discussed all labs/radiology results, recommend obgyn follow up and repeat sonogram in 4-6 weeks. -Discharge home with macrobid, continue percocet at home as needed, follow up with your own pmd and urologist/obgyn to repeat the transvaginal sonogram in 4- 6 weeks, return to the ER for any new or worsening signs or symptoms. 06/22/17 18:41 Abd/Pelvis CT reviewed, shows: LOWER THORAX: Lung bases are clear. No infiltrate effusion or basilar pneumothorax. There is a small to medium size hiatal hernia with wall thickening of the distal esophagus that is likely due to protrusion gastric mucosa. Possibility of esophagitis not excluded. Clinical correlation recommended. Heart size is within range of normal. No pericardial effusion identified on available images. LIVER: Liver exhibits normal size measuring nearly 15 cm in CC dimension. No obvious hepatic mass collection or calcification. GALLBLADDER AND BILE DUCTS: Gallbladder is physiologically distended. No evidence of intraluminal gallbladder calculi. . PANCREAS: Unremarkable. No mass. No ductal dilatation. SPLEEN: Unremarkable. No splenomegaly. ADRENALS: No adrenal lesions. KIDNEYS AND URETERS: Kidneys demonstrate relatively symmetric size. No evidence of nephrolithiasis or hydronephrosis. BLADDER: Urinary bladder incompletely distended which in part accounts for thick-walled appearance however correlation with urinalysis recommended to exclude the possibility of a cystitis. REPRODUCTIVE: Uterus is unremarkable. There appears to be punctate calcifications right and left adnexum nonspecific. APPENDIX: What is felt to represent a normal of retro cecal appendix of best seen on axial series 3 image number [id number]. No periappendiceal inflammatory changes. Image number BOWEL: Evaluation of the bowel is limited due to the lack of oral contrast material. Stomach is incompletely distended which in part accounts for thick-walled appearance. Rule out gastritis. Visualized loops of small bowel exhibit normal contour and caliber. No evidence of acute mechanical small bowel obstruction. Stool and air seen throughout the large bowel. No evidence of mural wall thickening. PERITONEUM: Unremarkable. No fluid collection. No free air. Small fat containing umbilical hernia. Small right-sided fat containing inguinal hernia with possible very tiny left-sided fat containing inguinal hernia. LYMPH NODES: Unremarkable. No enlarged lymph nodes. VASCULATURE: Unremarkable. No abdominal aortic or iliac artery aneurysm identified. BONES: Mild multilevel degenerative spondylosis of the lower thoracic and lumbar spine. There are no acute compression fractures nor retropulsed fragments. Vertebral bodies exhibit normal stature malalignment. OTHER FINDINGS: None. IMPRESSION: No evidence of nephrolithiasis or hydronephrosis. No evidence of cholelithiasis or acute appendicitis. The urinary bladder incompletely distended which in part accounts for thick- walled appearance. Possibility of a cystitis not excluded. Small fat containing umbilical hernia. Transvaginal US reviewed, shows: UTERUS: Measures 8.8 x 4.9 x6 0.3 cm. Anteverted. Normal in size and appearance. No fibroid or other mass lesion seen. ENDOMETRIUM: Measures 1.7 mm in diameter which is thickened though could be secondary to alumnae secretary phase of the endometrial cycle. Repeat pelvic ultrasound during the next menstrual cycle shortly following cessation of menses recommended to assess for religious of normal endometrial thickness and exclude other pathology including endometrial hyperplasia, endometrial polyps or endometrial carcinoma. . CERVIX: No cervical abnormality identified. RIGHT OVARY: Measures 2.8 x 2.2 x 2.4 cm. No solid mass. Normal flow. LEFT OVARY: Measures 2.7 x 3.0 x 3.1 cm. No solid mass. Normal flow. FREE FLUID: No significant free fluid noted. OTHER FINDINGS: None. IMPRESSION: Thickened endometrium which could be secondary to alumnae secretary phase of the endometrial cycle. Repeat pelvic ultrasound during the next menstrual cycle shortly following cessation of menses recommended to assess for religious of normal endometrial thickness and exclude other pathology including endometrial hyperplasia, endometrial polyps or endometrial carcinoma. . No evidence of ovarian cysts. - Lab Interpretations Lab Results: 06/22/17 15:30 06/22/17 15:30 Lab Results 06/22/17 15:30: WBC 7.0, RBC 4.46, Hgb 13.5, Hct 38.9, MCV 87.2, MCH 30.3, MCHC 34.7, RDW 12.8, Plt Count 280, MPV 9.0, Gran % 61.6, Lymph % (Auto) 23.7, [place] % (Auto) 10.6 H, Eos % (Auto) 3.7, Baso % (Auto) 0.4, Gran # 4.29, Lymph # (Auto ) 1.7, [place] # (Auto) 0.7 H, Eos # (Auto) 0.3, Baso # (Auto) 0.03 06/22/17 15:30: Sodium 139, Potassium 3.8, Chloride 107, Carbon Dioxide 22, Anion Gap 15, BUN 15, Creatinine 0.8, Est GFR ( Amer) > 60, Est GFR (Non- Af Amer) > 60, Random Glucose 87, Calcium 9.2, Total Bilirubin 0.3, AST 20, ALT 24, Alkaline Phosphatase 39, Total Protein 7.0, Albumin 4.3, Globulin 2.6, Albumin/Globulin Ratio 1.7 06/22/17 15:30: Urine Color Yellow, Urine Appearance Sl cloudy, Urine pH 6.0, Ur Specific [place] 1.025, Urine Protein Negative, Urine Glucose (UA) Negative, Urine Ketones Negative, Urine Blood Trace-intact H, Urine Nitrate Negative, Urine Bilirubin Negative, Urine Urobilinogen 0.2, Ur Leukocyte Esterase Small H , Urine RBC 1 - 3, Urine WBC 5 - 10, Ur Epithelial Cells 6 - 8, Urine Bacteria Few I have reviewed the lab results: Yes - RAD Interpretation Radiology Orders: 06/22/17 16:05 TRANSVAGINAL [US] Stat 06/22/17 16:07 ABDOMEN & PELVIS [ABD & PELVIS W/O PO OR IV CONT] [CT] Stat CT abdomen and pelvis: Lung bases are clear. No infiltrate effusion or basilar pneumothorax. There is a small to medium size hiatal hernia with wall thickening of the distal esophagus that is likely due to protrusion gastric mucosa. Possibility of esophagitis not excluded. Clinical correlation recommended. Heart size is within range of normal. No pericardial effusion identified on available images. LIVER: Liver exhibits normal size measuring nearly 15 cm in CC dimension. No obvious hepatic mass collection or calcification. GALLBLADDER AND BILE DUCTS: Gallbladder is physiologically distended. No evidence of intraluminal gallbladder calculi. . PANCREAS: Unremarkable. No mass. No ductal dilatation. SPLEEN: Unremarkable. No splenomegaly. ADRENALS: No adrenal lesions. KIDNEYS AND URETERS: Kidneys demonstrate relatively symmetric size. No evidence of nephrolithiasis or hydronephrosis. BLADDER: Urinary bladder incompletely distended which in part accounts for thick-walled appearance however correlation with urinalysis recommended to exclude the possibility of a cystitis. REPRODUCTIVE: Uterus is unremarkable. There appears to be punctate calcifications right and left adnexum nonspecific. APPENDIX: What is felt to represent a normal of retro cecal appendix of best seen on axial series 3 image number [id number]. No periappendiceal inflammatory changes. Image number BOWEL: Evaluation of the bowel is limited due to the lack of oral contrast material. Stomach is incompletely distended which in part accounts for thick-walled appearance. Rule out gastritis. Visualized loops of small bowel exhibit normal contour and caliber. No evidence of acute mechanical small bowel obstruction. Stool and air seen throughout the large bowel. No evidence of mural wall thickening. PERITONEUM: Unremarkable. No fluid collection. No free air. Small fat containing umbilical hernia. Small right-sided fat containing inguinal hernia with possible very tiny left-sided fat containing inguinal hernia. LYMPH NODES: Unremarkable. No enlarged lymph nodes. VASCULATURE: Unremarkable. No abdominal aortic or iliac artery aneurysm identified. BONES: Mild multilevel degenerative spondylosis of the lower thoracic and lumbar spine. There are no acute compression fractures nor retropulsed fragments. Vertebral bodies exhibit normal stature malalignment. OTHER FINDINGS: None. IMPRESSION: No evidence of nephrolithiasis or hydronephrosis. No evidence of cholelithiasis or acute appendicitis. The urinary bladder incompletely distended which in part accounts for thick- walled appearance. Possibility of a cystitis not excluded. Small fat containing umbilical hernia. See above discussion for additional findings and details. Transvaginal sonogram: Uterus/cervix: Uterus measures 8.8 x 4.9 x 6.3 cm. Endometrium measures up to 2.4 cm in thickness. Myometrium appears heterogeneous without discrete mass. Right ovary: Right ovary measures 2.8 x 2.2 x 2.4 cm. Normal blood flow. No cystic or solid lesion. Left ovary: Left ovary measures 2.7 x 3 x 3.1 cm. Normal blood flow. No cystic or solid lesion. Free fluid: No free fluid. Bladder: Empty bladder which cannot be evaluated with this probe. IMPRESSION: 1. Thickened endometrium, recommend followup in 4-6 weeks. 2. Heterogeneous myometrium without discrete lesion, possible adenomyosis. Thank you for allowing us to participate in the care of your patient. 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: Radiologist - Medication Orders Current Medication Orders: Meropenem (Merrem Iv 1 Gm Premix) 50 mls @ 100 mls/hr IVPB STAT JOSE GUADALUPE PRN Reason: Protocol Last Admin: 06/22/17 18:25 Dose: 100 mls/hr eMAR Start Stop Document 06/22/17 18:25 [email or web address] (Rec: 06/22/17 18:25 [email or web address] [id number]- MULTIM[employer] AUTHORING SPECIALIST) Intravenous Solution Start Date 06/22/17 Start Time 18:25 End Date 06/22/17 Discontinued Medications Sodium Chloride (Sodium Chloride 0.9%) 1,000 mls @ 999 mls/hr IV .Q1H1M STA Stop: 06/22/17 15:51 Last Admin: 06/22/17 15:44 Dose: 999 mls/hr eMAR Start Stop Document 06/22/17 15:44 [email or web address] (Rec: 06/22/17 15:44 [email or web address] [id number] MULTIM[employer] AUTHORING SPECIALIST) Intravenous Solution Start Date 06/22/17 Start Time 15:44 End Date 06/22/17 Ketorolac Tromethamine (Toradol) 30 mg IVP STAT STA Stop: 06/22/17 15:13 Last Admin: 06/22/17 15:44 Dose: 30 mg MAR Pain Assessment Document 06/22/17 15:44 [email or web address] (Rec: 06/22/17 15:45 [email or web address] [id number] MULTIM[employer] AUTHORING SPECIALIST) Pain Reassessment Is this a pain reassessment? No Sleep Is patient sleeping during reassessment? No Presence of Pain Presence of Pain Yes Pain Scale Used Pain Scale Used Numeric Location Pain Location Body Site Back Description Description Constant Intensity of Pain at present 6 Pain Behavior Facial Grimacing Alleviating Factors/Management Medication Techniques Alleviating Factors Medication IVP Administration Document 06/22/17 15:44 [email or web address] (Rec: 06/22/17 15:45 [email or web address] [id number] M[employer]IM[employer] AUTHORING SPECIALIST) Charges for Administration # of IVP Administrations 1 Oxycodone/Acetaminophen (Percocet 5/325 Mg Tab) 1 tab PO STAT STA Stop: 06/22/17 17:15 Last Admin: 06/22/17 17:26 Dose: 1 tab MAR Pain Assessment Document 06/22/17 17:26 [email or web address] (Rec: 06/22/17 17:26 [email or web address] [id number] MULTIM[employer] AUTHORING SPECIALIST) Pain Reassessment Is this a pain reassessment? No Sleep Is patient sleeping during reassessment? 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 - Scribe Statement The provider has reviewed the documentation as recorded by the Johnibburton Salvador All medical record entries made by the Johnibburton were at my direction and personally dictated by me. I have reviewed the chart and agree that the record accurately reflects my personal performance of the history, physical exam, medical decision making, and the department course for this patient. I have also personally directed, reviewed, and agree with the discharge instructions and disposition. Disposition/Present on Arrival - Present on Arrival Any Indicators Present on Arrival: No History of DVT/PE: No History of Uncontrolled Diabetes: No Urinary Catheter: No History of Decub. Ulcer: No History Surgical Site Infection Following: None - Disposition Have Diagnosis and Disposition been Completed?: Yes Diagnosis: Cystitis, Adenomyosis Disposition: HOME/ ROUTINE Disposition Time: 15:10 Patient Plan: Discharge Patient Problems: Current Active Problems Problem Status Onset Cystitis Acute Adenomyosis Acute Condition: GOOD Discharge Instructions (ExitCare): Adenomyosis Print Language: FAROESE Additional Instructions: -Discharge home with macrobid, continue percocet at home as needed, follow up with your own pmd and urologist/obgyn to repeat the transvaginal sonogram in 4- 6 weeks, return to the ER for any new or worsening signs or symptoms. Prescriptions: Nitrofurantoin Macrocrystals [Macrobid] 100 mg PO BID #14 cap Referrals: Karan Gerard MD [Staff Provider] - Follow up with primary Oscar Sánchez [Medical Doctor] - Follow up with primary Forms: WORK NOTE
[2017-06-22 15:53] LABS: BASO # 0.03 K/mm3 (0.0-2.0); BASO % 0.4 % (0.0-3.0); EOS # 0.3 (0.0-0.7); EOS % 3.7 % (1.5-5.0); GRAN # 4.29 (1.4-6.5); GRAN % 61.6 % (50.0-68.0); HEMOGLOBIN 13.5 g/dL (12.0-16.0); LYMPH # 1.7 (1.2-3.4); LYMPH % 23.7 % (22.0-35.0); MEAN CELL VOLUME 87.2 fl (80.0-105.0); MEAN CORPUSCULAR HEMOGLOBIN 30.3 pg (25.0-35.0); MEAN CORPUSCULAR HGB CONC 34.7 g/dl (31.0-37.0); MONO # 0.7 (0.1-0.6); MONO % 10.6 % (1.0-6.0); RBC 4.46 10^6/uL (3.5-6.1); RED CELL DISTRIBUTION WIDTH 12.8 % (11.5-14.5)
[2017-06-22 16:01] LABS: ALB/GLOB RATIO 1.7 (1.1-1.8); ALBUMIN 4.3 g/dL (3.0-4.8); ALT/SGPT 24 U/L (7-56); AST/SGOT 20 U/L (14-36); BLOOD UREA NITROGEN 15 mg/dL (7-21); CALCIUM 9.2 mg/dL (8.4-10.5); GFR AFRICAN-AMERICAN > 60; GFR NON-AFRICAN AMERICAN > 60
[2017-06-22 16:12] LABS: URINE APPEARANCE SL CLOUDY (CLEAR); URINE BILIRUBIN NEGATIVE (NEGATIVE); URINE BLOOD TRACE-INTACT (NEGATIVE); URINE COLOR YELLOW (YELLOW); URINE GLUCOSE (UA) NEGATIVE (NEGATIVE); URINE LEUKOCYTE ESTERASE SMALL Leu/uL (NEGATIVE); URINE PROTEIN NEGATIVE mg/dL (<30 mg/dL); URINE UROBILINOGEN 0.2 E.U./dL (<1 E.U./dL)
[2017-06-22 16:18] LABS: URINE BACTERIA FEW (NEG)
--- NOTE | 2017-06-22 17:20 | CT ---
PROCEDURE: CT scan abdomen pelvis dated 06/23/2015 HISTORY: Bilateral flank pain, kidney stone history? COMPARISON: No prior study available for comparison TECHNIQUE: Contiguous axial images of the abdomen and pelvis performed of without oral or intravenous contrast material. Additional 2 dimensional sagittal and coronal reformats generated. Radiation dose: Total exam DLP = This CT exam was performed using one or more of the following dose reduction techniques: Automated exposure control, adjustment of the mA and/or kV according to patient size, and/or use of iterative reconstruction technique. . FINDINGS: LOWER THORAX: Lung bases are clear. No infiltrate effusion or basilar pneumothorax. There is a small to medium size hiatal hernia with wall thickening of the distal esophagus that is likely due to protrusion gastric mucosa. Possibility of esophagitis not excluded. Clinical correlation recommended. Heart size is within range of normal. No pericardial effusion identified on available images. LIVER: Liver exhibits normal size measuring nearly 15 cm in CC dimension. No obvious hepatic mass collection or calcification. GALLBLADDER AND BILE DUCTS: Gallbladder is physiologically distended. No evidence of intraluminal gallbladder calculi. . PANCREAS: Unremarkable. No mass. No ductal dilatation. SPLEEN: Unremarkable. No splenomegaly. ADRENALS: No adrenal lesions. KIDNEYS AND URETERS: Kidneys demonstrate relatively symmetric size. No evidence of nephrolithiasis or hydronephrosis. BLADDER: Urinary bladder incompletely distended which in part accounts for thick-walled appearance however correlation with urinalysis recommended to exclude the possibility of a cystitis. REPRODUCTIVE: Uterus is unremarkable. There appears to be punctate calcifications right and left adnexum nonspecific. APPENDIX: What is felt to represent a normal of retro cecal appendix of best seen on axial series 3 image number [id number]. No periappendiceal inflammatory changes. Image number BOWEL: Evaluation of the bowel is limited due to the lack of oral contrast material. Stomach is incompletely distended which in part accounts for thick-walled appearance. Rule out gastritis. Visualized loops of small bowel exhibit normal contour and caliber. No evidence of acute mechanical small bowel obstruction. Stool and air seen throughout the large bowel. No evidence of mural wall thickening. PERITONEUM: Unremarkable. No fluid collection. No free air. Small fat containing umbilical hernia. Small right-sided fat containing inguinal hernia with possible very tiny left-sided fat containing inguinal hernia. LYMPH NODES: Unremarkable. No enlarged lymph nodes. VASCULATURE: Unremarkable. No abdominal aortic or iliac artery aneurysm identified. BONES: Mild multilevel degenerative spondylosis of the lower thoracic and lumbar spine. There are no acute compression fractures nor retropulsed fragments. Vertebral bodies exhibit normal stature malalignment. OTHER FINDINGS: None. IMPRESSION: No evidence of nephrolithiasis or hydronephrosis. No evidence of cholelithiasis or acute appendicitis. The urinary bladder incompletely distended which in part accounts for thick-walled appearance. Possibility of a cystitis not excluded. Small fat containing umbilical hernia. See above discussion for additional findings and details.
[2017-06-22] MEDS ORDERED: Meropenem IV 1 gm in NS 50 ML IVPB SCH (17:30)
--- NOTE | 2017-06-22 17:59 | US ---
EXAM: US Pelvis, Transvaginal EXAM DATE/TIME: 06/22/2017 4:05 PM CLINICAL HISTORY: 42 years old, female; Pain; Pelvic pain; Additional info: Ovarian cysts? TECHNIQUE: Real-time transvaginal pelvic ultrasound (complete) with image documentation. Transvaginal imaging was used for better evaluation of the endometrium and adnexa. COMPARISON: No relevant prior studies available. FINDINGS: Uterus/cervix: Uterus measures 8.8 x 4.9 x 6.3 cm. Endometrium measures up to 2.4 cm in thickness. Myometrium appears heterogeneous without discrete mass. Right ovary: Right ovary measures 2.8 x 2.2 x 2.4 cm. Normal blood flow. No cystic or solid lesion. Left ovary: Left ovary measures 2.7 x 3 x 3.1 cm. Normal blood flow. No cystic or solid lesion. Free fluid: No free fluid. Bladder: Empty bladder which cannot be evaluated with this probe. IMPRESSION: 1. Thickened endometrium, recommend followup in 4-6 weeks. 2. Heterogeneous myometrium without discrete lesion, possible adenomyosis.
[2017-06-22 18:22] VITALS: TEMP 98.9
[2017-06-22 19:16] VITALS: BP 105/80; PULSE 74
[2017-06-22 19:24] VITALS: RESP 19; O2SAT 99
== END 2017-06-22 19:23 | disposition home or self-care (01) ==
LOC: ED 14:08
DX: N30.90 Cystitis, unspecified without hematuria (principal); N80.0 Endometriosis of uterus
CPT/HCPCS: 74176; 76830; 80053; 81001; 85025; 87086; 96374; 99283; J1885; J2185; J7040

== ENCOUNTER 2018-03-19 19:50 | Emergency (ER) | payer OTHER ==
[2018-03-19 19:50] VITALS: BMI 26.5
== END 2018-03-19 20:56 | disposition left against medical advice (07) ==
LOC: ED 19:50
DX: Z02.89 Encounter for other administrative examinations (principal); R10.9 Unspecified abdominal pain